=== PATIENT | female | born 2000 | race Caucasian/White ===

== ENCOUNTER 2022-02-25 03:15 | Outpatient (CLI) | payer OTHER, SELFPAY ==
[2022-02-25 11:06] LABS: Kit/Specimen SENT
[2022-02-25 11:14] LABS: Abs Immature Grans 0.03 10^3/uL (0.0-0.06); Absolute Basophil Count 0.05 10^3/uL (0.0-0.2); Absolute Lymphocyte Count 2.44 10^3/uL (1.2-3.4); Absolute Monocyte Count 0.76 10^3/uL (0.1-0.8); Absolute Neutrophil Count 5.75 10^3/uL (1.2-6.7); Basophils % 0.5; Eosinophils % 1.1; HCT 39.8 % (36.0-46.0); HGB 14.1 g/dL (11.2-15.7); Immature Grans % 0.3; Lymphocytes % 26.7; MCH 31.4 pg (27.0-33.0); MCHC 35.4 % (32.0-36.0); MCV 89 fL (80-95); MPV 10.1 fL (8.0-11.0); Monocytes % 8.3; Neutrophils % 63.1; Platelet Count 255 10^3/uL (130-400); RBC 4.49 10^6/uL (3.93-5.22); RDW 12.3 % (11.7-14.6); RDW-SD 39.7 fL; WBC 9.13 10^3/uL (4.4-10.8)
[2022-02-25 11:25] LABS: Glucose,1 Hr (Glucola) 82 mg/dL (80-140)
[2022-02-26 09:28] LABS: Hepatitis B Surface Ag Negative (Negative)
[2022-02-26 10:22] LABS: Hepatitis C Ab w Rflx HCV PCR Negative (Negative)
[2022-02-26 10:38] LABS: HIV-1/2 Ag & Ab Screen Negative (Negative)
[2022-02-26 11:05] LABS: Varicella IgG Antibody Positive (See Note)
[2022-02-26 11:07] LABS: Rubella IgG Ab (UVM) Positive (See Note)
[2022-02-27 13:28] LABS: Syphilis IgG w/Reflex Nonreactive (Nonreactive)
[2022-03-03 15:23] LABS: Result Summary NEGATIVE; Specimen WB Whole Blood
[2022-03-03 16:24] LABS: Specimen WB Whole Blood
== END 2022-02-25 03:16 | disposition home or self-care (01) ==
LOC: LBO 03:16 → LBN 12:41
PROVIDERS: Advanced Practice Midwife; Visit Provider Advanced Practice Midwife
DX: Z34.91 Encounter for supervision of normal pregnancy, unspecified, first trimester (principal); Z36.89 Encounter for other specified antenatal screening; Z3A.12 12 weeks gestation of pregnancy
CPT/HCPCS: 36415; 81329; 82950; 86787; 86803; 86850; 86900; 86901; 87340; 87389; 81220; 84443; 85025; 86762; 86780

== ENCOUNTER 2022-02-25 15:40 | Outpatient (REF) | payer OTHER, SELFPAY ==
[2022-02-25 13:03] LABS: *AMPHETAMINES SCREEN URINE Negative (Negative); *BARBITURATES SCREEN URINE Negative (Negative); *BENZODIAZEPINES SCREEN URINE Negative (Negative); Cannabinoids THC Negative (Negative); Cocaine Screen,Urine Negative (Negative); METHADONE URINE SCREEN Negative (Negative); OPIATES URINE SCREEN Negative (Negative)
[2022-02-25 13:04] LABS: Tricyclic Antidepressants Negative (Negative)
[2022-03-03 14:20] LABS: Buprenorphine Negative ng/mL (Cutoff: 5.0); Norbuprenorphine Negative ng/mL (Cutoff: 2.5)
== END 2022-02-25 15:41 | disposition home or self-care (01) ==
LOC: LBN 15:40
PROVIDERS: Visit Provider Advanced Practice Midwife
DX: Z34.91 Encounter for supervision of normal pregnancy, unspecified, first trimester (principal); Z3A.13 13 weeks gestation of pregnancy
CPT/HCPCS: 80307; 87086

== ENCOUNTER 2022-03-25 15:01 | Outpatient (REF) | payer OTHER, SELFPAY ==
[2022-03-26 15:05] LABS: Chlamydia Result Negative (Negative); GC Result Negative (Negative)
== END 2022-03-25 15:02 | disposition home or self-care (01) ==
LOC: LBN 15:01
PROVIDERS: Visit Provider Advanced Practice Midwife
DX: Z34.92 Encounter for supervision of normal pregnancy, unspecified, second trimester (principal); Z3A.16 16 weeks gestation of pregnancy
CPT/HCPCS: 87491; 87591

== ENCOUNTER 2022-06-17 02:37 | Outpatient (CLI) | payer OTHER, SELFPAY ==
[2022-06-17 12:38] LABS: HCT 37.3 % (36.0-46.0); HGB 12.9 g/dL (11.2-15.7); MCH 32.3 pg (27.0-33.0); MCHC 34.6 % (32.0-36.0); MCV 94 fL (80-95); MPV 10.3 fL (8.0-11.0); Platelet Count 268 10^3/uL (130-400); RBC 3.99 10^6/uL (3.93-5.22); RDW 12.4 % (11.7-14.6); WBC 9.55 10^3/uL (4.4-10.8)
[2022-06-17 12:49] LABS: Glucose,1 Hr (Glucola) 89 mg/dL (80-140)
== END 2022-06-17 02:38 | disposition home or self-care (01) ==
LOC: LBO 02:37
PROVIDERS: Visit Provider Advanced Practice Midwife
DX: O36.0130 Maternal care for anti-D [Rh] antibodies, third trimester, not applicable or unspecified (principal); Z67.91 Unspecified blood type, Rh negative; Z3A.28 28 weeks gestation of pregnancy
CPT/HCPCS: 36415; 82950; 85027; 86850; 90384

== ENCOUNTER 2022-06-30 23:35 | Observation (INO) | payer OTHER, SELFPAY ==
[2022-06-30 23:18] VITALS: BP 115/61; PULSE 96; RESP 16; TEMP 36.9
--- NOTE | 2022-06-30 23:46 | HPE_ITS ---
Date of service: 06/30/22 Time of Service: 23:46 Assessment and Plan Assessment and plan (1) Acute right flank pain: Status: Acute Assessment and plan: R/O kidney stones vs cholecystitis vs appendicitis Abd soft, uterus nontender, right flank pain with neg CVAT Start IVF of LR, keep NPO, Zofran 4 mg q4hrs prn nausea Labs: CBC, CMP, amylase, lipase, UA & C&S (not collected yet) Consult with Dr. Anthony in the ED Is OB stable cleared, will discharge from , Transfer pt to ED for pain management and further evaluation (2) 30 weeks gestation of : Status: Acute Assessment and plan: NST reactive, no labor, cvx closed Obstetrically stable (3) History of nephrolithiasis: OB-HPI Labor/Delivery History of Present Illness Reason for Visit: sudden onset right side pain Chief Complaint: Other (sudden onset right side/flank pain at waist & hip area @ 2145 with vomiting x2, pain level ranging 6-8/10 and constant). ASAF Calculator Estimated Delivery Date Method Current WG Current Estimate 09/03/22 LMP (Certain) 30w 6d Other Estimates 09/04/22 Ultrasound #1 30w 5d Comments: Denies vaginal bleeding, ROM, contractions, appreciates movement. Pt reports history of kidney stones, last episode on left side over 1 yr ago. History of Present Expected Delivery Route/Plan - CNM FOB/ - Mariza Lizarraga (first child) BG Specific Issues/Plan 1. Von Willebrand's disease, mild per pt, no meds, fam hx (mother & mgm), dx'ed @ [facility] 1a. Consult @ [facility] heme/onc, see note, low dose ASA OK'ed, next appt 06/03/22 1b. Cleared for hematology for delivery at [facility], anesthesia consult requested not indicated per [employer] 1c. OB Consult 2. PCN allergy, accepts ref to [facility] allergy for testing: telehealth appt done 04/20/22 2a. Allergy clinic notes indicate no PCN allergy rather pt experienced side=effects only 3. BMI 33, early glucola=82 4. Low dose ASA for nulliparity and elevated BMI 5. FOB congenital hypoplastic left heart, surgery in [place], his aunt too ( in childhood) 5a. Accepts [facility] level 2 scan, genetics & MFM consult 5b. MFM & Peds cardiology 04/15, level 2 & echo nml, genetics consult 04/13/22 6. Desires cfDNA, CF (Negative) & SMA screening (Negative), declines AFP 7. Rh neg; RhoGam @ 28 wks ___ 8. 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) Allergy history, penicillin (Acute) Migraines (Chronic) Asthma (Chronic) Von Willebrand disease (Acute) Medical History (Updated 07/01/22 @ 00:00 by Sangeeta Gaviria) History of nephrolithiasis Family History (Updated 02/06/22 @ 16:10 by Stefanie Mejía) Other Diabetes Social History (Updated 02/06/22 @ 16:11 by Stefanie Mejía) Smoking/Tobacco Use Status: Never Smoking risk assessment performed?: Yes Alcohol Intake: never Drug use: Never Household members: spouse Housing: house Number of Children: 0 Education Level: college 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 Sexually active: Yes Do you think of yourself as: straight/heterosexual Current gender identity: female Female Reproductive History Menstrual Age of Menarche: 10 Duration of menses: 3-5 days control method: none History History 1 Para 0 Hx # Term Pregnancies 0 Multiple births 0 Hx # Pregnancies 0 Ectopic pregnancies 0 AB induced 0 Hx Number of Living Children 0 AB spontaneous 0 Meds Allergies and Home Medications Allergies Allergy/AdvReac Type Severity Reaction Status Date / Time codeine Allergy Hives Verified 06/17/22 11:18 hazelnut Allergy Other (See Verified 06/17/22 11:18 Comment) spiders AdvReac Skin Rash Uncoded 06/17/22 11:18 Home Medications Medication Instructions Recorded Confirmed Type fexofenadine 60 mg-pseudoephedrine 1 tab PO Q12H PRN 02/06/22 06/17/22 History ER 120 mg tablet,ext.release,12 hr (Nikki-D 12 Hour) montelukast 10 mg tablet 10 mg PO DAILY 02/06/22 06/17/22 History (Jorgeir) prenat.vits,jaya,[id number] 1 tab PO DAILY 02/06/22 06/17/22 History aspirin 81 mg tablet,delayed 81 mg PO DAILY #90 tabs 02/25/22 06/17/22 Rx release Exam Physical Exam Vital signs: Temp Pulse Resp BP 98.5 F 96 H 16 115/61 06/30/22 23:18 06/30/22 23:18 06/30/22 23:18 06/30/22 23:18 Vital Signs Reviewed: Yes Constitutional Constitutional: moderate distress, average body habitus and cooperative Comments: vomiting shortly after arrival in unit Detailed Labor and Delivery Exam Dilation: 0 Effacement (%): 0 station: -4 (presenting part out of the pelvis) Consistency: firm Amniotic Membrane Status: Intact Contraction Frequency(min): occasional, irreg, mild Contraction Intensity: Mild Fetus A Heart Rate Baseline: 135 Monitor Accelerations: 10 X 10 Monitor Decelerations: None Variability: Moderate (6-25 BPM) Categories: Category I Assessment Note: Reactive NST HEENT Exam HEENT Exam: Normal Neck Exam Neck Exam: Normal Chest/Brest/Axilla Exam Chest Exam: Normal Breast Exam Breast Exam: Not Done Respiratory Exam Respiratory Exam: Normal Cardiovascular Exam Cardiovascular Exam: Normal Abdominal Exam Abdominal Exam: Abnormal Detailed Abdominal Exam Comments: Gravid abd, uterus soft and nontender. Upper quadrants and lower quadrants nontender to palpation, No rebound noted, tenderness over right flank area increased with deep palpation, and pain radiates toward the RLQ. Rectal Exam Rectal Exam: Normal Exam Exam: Normal Extremities Exam Extremities Exam: Normal Back/Spine/Pelvis Exam Back Exam: Normal (negative for CVAT) Skin Exam Skin Exam: Normal Neurological Exam Neurological Exam: Normal Psychiatric Exam Psychiatric Exam: Normal (appropriate expression of pain and distress) Results Results Blood Type: O- (received RhoGam 28 wks on 06/17/22) Rubella Status: Immune Varicella Immunity: Immune Risk Assessment Risk for Shoulder Dystocia Historical/Initial OB: POSITIVE FOR: Pre- BMI>30; NEGATIVE FOR: Pelvic Abnormality, Previous Shoulder Dystocia or Previous Macrosomia Risk for Pre-Eclampsia Date Initiated/Initials: indicated, discussed w/Dr. Duran. 02/25/22 milady Yes, if one or more: NEGATIVE FOR: Hx Pre-E/Gest HTN, Chronic HTN, Multiple Gestation, Pre-gestational DM, Renal Disease, Systemic Lupus or APA Syndrome Yes, if 2 or more: POSITIVE FOR: Nulliparity and BMI>30; NEGATIVE FOR: Age>= 35 yrs, >10yr btwn pregnancies, ethinicty, Mother/Sister w/ Pre-E or Previous IUGR Risk for Post- Hemorrhage Initial: POSITIVE FOR: Known Clotting Deficiency (VonWillebrand Syndrome); NEGATIVE FOR: Multiple Gestation, Previous PPH, Grand Multiparity or Anticoagulation Interventions: consider discontinuing low dose ASA in third trimester Risks Reviewed Risks Reviewed Upon Admission: Yes
[2022-07-01] MEDS: Ondansetron 4 MG/2 ML VIAL IVP (00:05)
[2022-07-01] MEDS: Lactated Ringers 1,000 ML 200 ML IV (00:06)
[2022-07-01 00:17] LABS: HCT 36.2 % (36.0-46.0); MCH 32.5 pg (27.0-33.0); MCHC 35.9 % (32.0-36.0); MCV 91 fL (80-95); MPV 10.6 fL (8.0-11.0); Platelet Count 224 10^3/uL (130-400); RDW 12.1 % (11.7-14.6); RDW-SD 40.3 fL; WBC 11.36 10^3/uL (4.4-10.8)
[2022-07-01 00:31] LABS: Amylase 73 U/L (25-115); Lipase 145 U/L (73-393)
[2022-07-01 00:34] LABS: ALT 21 U/L (14-59); AST 23 U/L (15-37); Albumin 2.9 g/dL (3.4-5.0); Alkaline Phosphatase 116 U/L (46-116); Anion Gap 10.2 mmol/L (3-11); BUN 10 mg/dL (7-18); Bilirubin, Total 0.2 mg/dL (0.2-1.0); CO2 23.8 mmol/L (21.0-32.0); CREATININE 0.7 mg/dL (0.55-1.02); Calcium 8.8 mg/dL (8.5-10.1); Chloride 105 mmol/L (98-107); Estimated GFR 123.78 (mL/min/1.73m2); Glucose 98 mg/dL (74-106); Potassium 3.7 mmol/L (3.5-5.1); Sodium 139 mmol/L (136-145); Total Protein 6.4 g/dL (6.4-8.2)
--- NOTE | 2022-07-01 00:36 | W.OBNST ---
Date of service: 07/01/22 Time of Service: 00:36 NST Evaluation Reason for NST Reasons for Nonstress Test: OTHER, SEE COMMENT Reason for NST Other: Right flank pain at 30+5 wks Test and Monitor Explained Test/Monitor Explained: Test Explained, Monitor Explained and Patient Verbalized Understanding Vital Signs Blood Pressure: 115/61 Pulse: 16 Temperature: 98.5 F NST Information Time on Monitor: 23:12 Date off Monitor: 07/01/22 Time off Monitor: 00:08 NST Interventions: IV Fluids Contraction Frequency: none noted NST Evaluation Patient States Movement: Present FHR Baseline: 135 Variability: Moderate 6-25 bpm Accelerations: 15x15 Decelerations: None NST Results: Reactive Note NST Note Note: No labor, cvx closed, status reassuring Pt discharged from and transported to ED for pain management and further evaluation NST Reviewed and Verified by: Sangeeta Gaviria
[2022-07-01 00:38] VITALS: BP 115/61; PULSE 16; TEMP 36.9
--- NOTE | 2022-07-01 00:42 | DSE_ITS ---
Date of service: 07/01/22 Time of Service: 00:42 DS: Diagnosis Discharge Diagnosis (1) Acute right flank pain: Status: Acute (2) 30 weeks gestation of : Status: Acute (3) History of nephrolithiasis: Discharge Plan Disposition Patient Disposition: Other Disposition Not Listed Other Facility: Discharged from to Emergency Dept Condition: Fair Discharge Details Reason For Visit: sudden onset right side pain Admit Provider: Sangeeta Gaviria Attending Provider: Sangeeta Gaviria Hospital Course Hospital Course: Evaluated in the Center for right sided pain, OB eval=no labor, reactive NST, cvx closed, pt with moderate to severe right flank pain and vomiting. IV started, labs drawn, medication given, Dr. Anthony accepts transfer, pt then transported by w/c to ED, IV infusing, pain reported by pt at 5/10 while sitting. Home Meds and New Rx's Prescriptions: No Action montelukast [Singulair] 10 mg tablet 10 mg PO DAILY fexofenadine-pseudoephedrine [Nikki-D 12 Hour] 60-120 mg tablet extended release 12 hr 1 tab PO Q12H PRN prenat.vits,jaya,[id number] Tablet 1 tab PO DAILY aspirin 81 mg tablet,delayed release (DR/EC) 81 mg PO DAILY Qty: 90 2RF Rx Instructions: take one tab daily alternating with 2 tabs every other day Discharge Instructions Activity:: Activity as Tolerated Equipment/Supplies:: No Equipment Needed Diet:: NPO to ED Discharge Orders Discharge Orders: Discharge Order (Routine); Ordered 07/01/22 Ordered By: Sangeeta Gaviria OB:DS Summary Contraception Discussed Contraception Discussed: No, Status at Discharge Functional status at discharge: independent ambulation Overall status at discharge: patient is not back to baseline Mental Status: mental status grossly normal Speech and Movement: speech and movement normal and speech clear Mood: congruent mood Affect: normal affect Exam Physical Exam Vital signs: Temp Pulse Resp BP 98.5 F 96 H 16 115/61 06/30/22 23:18 06/30/22 23:18 06/30/22 23:18 06/30/22 23:18 Constitutional Constitutional: moderate distress, average body habitus and cooperative HEENT Exam HEENT Exam: Normal Neck Exam Neck Exam: Normal Respiratory Exam Respiratory Exam: Normal Cardiovascular Exam Cardiovascular Exam: Normal Rectal Exam Rectal Exam: Normal Back/Spine/Pelvis Exam Back Exam: Normal (negative for CVAT) Skin Exam Skin Exam: Normal Neurological Exam Neurological Exam: Normal Psychiatric Exam Psychiatric Exam: Normal (appropriate expression of pain and distress) PFSH All Active Problems (Updated 07/01/22 @ 00:42 by Sangeeta Gaviria) 30 weeks gestation of (Acute) Acute right flank pain (Acute) Rh negative state in antepartum period (Acute) (Acute) Allergy history, penicillin (Acute) Migraines (Chronic) Asthma (Chronic) Von Willebrand disease (Acute) Medical History (Updated 07/01/22 @ 00:42 by Sangeeta Gaviria) Family history of cardiac disorder in father Pt's born with hypoplastic left heart History of nephrolithiasis Family History (Updated 02/06/22 @ 16:10 by Stefanie Mejía) Other Diabetes Social History (Updated 02/06/22 @ 16:11 by Stefanie Mejía) Smoking/Tobacco Use Status: Never Smoking risk assessment performed?: Yes Alcohol Intake: never Drug use: Never Household members: spouse Housing: house Number of Children: 0 Education Level: college 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 Sexually active: Yes Do you think of yourself as: straight/heterosexual Current gender identity: female Female Reproductive History Menstrual Age of Menarche: 10 Duration of menses: 3-5 days control method: none History History 1 Para 0 Hx # Term Pregnancies 0 Multiple births 0 Hx # Pregnancies 0 Ectopic pregnancies 0 AB induced 0 Hx Number of Living Children 0 AB spontaneous 0 DS: Data Vitals/I&O Vitals and I&O: Vital Signs Temperature 98.5 F 06/30/22 23:18 Temperature Source Oral 06/30/22 23:18 Pulse 96 H 06/30/22 23:18 Respiratory Rate 16 06/30/22 23:18 Blood Pressure 115/61 06/30/22 23:18 Oxygen Delivery Method Room Air 06/30/22 23:18 Oxygen Flow Rate 0 06/30/22 23:18 Pain Level 8 07/01/22 00:19 Data Completed and Pending Labs on day of discharge: Labs from last 24 hours 07/01/22 07/01/22 07/01/22 00:05 00:05 00:05 WBC 11.36 H RBC 4.00 Hgb 13.0 Hct 36.2 MCV 91 MCH 32.5 MCHC 35.9 RDW 12.1 Plt Count 224 MPV 10.6 Sodium 139 Potassium 3.7 Chloride 105 Carbon Dioxide 23.8 Anion Gap 10.2 BUN 10 Creatinine 0.7 Est GFR (CKD-EPI 2020) 123.78 Glucose 98 Calcium 8.8 Total Bilirubin 0.2 AST 23 ALT 21 Alkaline Phosphatase 116 Total Protein 6.4 Albumin 2.9 L Amylase 73 Lipase 145
== END 2022-07-01 00:30 | disposition other institution (70) ==
LOC: OBS 07-01 01:03
PROVIDERS: Admitting Provider Advanced Practice Midwife; Visit Provider Advanced Practice Midwife
DX: O26.893 Other specified pregnancy related conditions, third trimester (principal); R10.31 Right lower quadrant pain; O99.113 Other diseases of the blood and blood-forming organs and certain disorders involving the immune mechanism complicating pregnancy, third trimester; D68.00 Von Willebrand disease, unspecified; O99.513 Diseases of the respiratory system complicating pregnancy, third trimester; O99.353 Diseases of the nervous system complicating pregnancy, third trimester; O36.0930 Maternal care for other rhesus isoimmunization, third trimester, not applicable or unspecified; Z3A.30 30 weeks gestation of pregnancy; J45.909 Unspecified asthma, uncomplicated; G43.909 Migraine, unspecified, not intractable, without status migrainosus; Z87.442 Personal history of urinary calculi
CPT/HCPCS: 80053; 83690; 85027; 59025; 82150; G0378; J2405

== ENCOUNTER 2022-07-01 00:38 | Emergency (ER) | payer OTHER, SELFPAY ==
[2022-07-01 00:39] VITALS: BP 116/71; PULSE 70; RESP 16; TEMP 36.6; O2SAT 96
--- NOTE | 2022-07-01 01:33 | W.ED.GENAD ---
Discharge Plan Discharge Details Chief Complaint: Abd Prob Primary Care Provider: Unknown,Unknown ED Provider: Mono Anthony Home Meds and New Rx's Prescriptions: No Action montelukast [Singulair] 10 mg tablet 10 mg PO DAILY fexofenadine-pseudoephedrine [Nikki-D 12 Hour] 60-120 mg tablet extended release 12 hr 1 tab PO Q12H PRN prenat.vits,jaya,[id number] Tablet 1 tab PO DAILY aspirin 81 mg tablet,delayed release (DR/EC) 81 mg PO DAILY Qty: 90 2RF Rx Instructions: take one tab daily alternating with 2 tabs every other day Medical Decision Making This is a 31-week female who is Rh-, with von Willebrand disease, who presents today for abdominal pain. Patient states that at around 9:30 PM she got up out of her seat and when she moves she noticed pain in her right hip/flank area. Pain has been constant since then but comes and goes in severity. It appears to be worse when she lies down, slightly improved with movement and sitting. Pain continued throughout the night, she came in was evaluated by her OB upholsterer assembly line, she had 3 episodes of vomiting between the initial onset and then. OB evaluation demonstrated no significant obstetric emergency, and the patient was brought to the emergency department for further evaluation. Currently the patient states that the pain is somewhat improved but still an achy sensation in the right flank and right hip. Patient does have history of kidney stones but states that this feels different. She denies any vaginal bleeding. She denies any persistent diarrhea or continued vomiting. Pain is described as achy in nature. No other complaints at this time. No other modifying factors. Exam demonstrates well-appearing female, mild achiness over the right hip and right mid and lower abdominal region. No right upper quadrant tenderness. No CVA tenderness. Symptoms appear slightly low to suggest acute appendicitis, clinical history appears inconsistent with ovarian torsion but ovarian etiology is on the differential. Potential for musculoskeletal component as well. Initial work-up done by OB demonstrates normal labs including CBC and comprehensive metabolic panel. Patient has not yet urinated. We will continue to rehydrate, and monitor. We did discuss imaging options including CT scan, and through shared decision-making process patient would like to hold off on radiographic imaging. I do feel that ultrasound is certainly reasonable for further ovarian and abdominal evaluation. We will plan for ultrasound in 6 hours in the morning when ultrasonography gets here, however currently there is no clinical evidence of an acute surgical abdomen necessitating emergent CT scan or emergent transfer for ultrasonography. 2:58 AM Urinalysis has returned, negative for infection however there is 20-50 RBCs, which certainly does increase my differential concern for urolithiasis. Patient's pain has returned, we did offer morphine and patient would prefer this. She has had morphine before although she does have an allergy to codeine. She has tolerated morphine without a history of rash. We will continue to monitor here in the ED until ultrasound in the morning. Sign Out Yes HPI General Date/Time Provider Initiated Documentation: 07/01/22 00:53. HPI Narrative: This is a 31-week female who is Rh-, with von Willebrand disease, who presents today for abdominal pain. Patient states that at around 9:30 PM she got up out of her seat and when she moves she noticed pain in her right hip/flank area. Pain has been constant since then but comes and goes in severity. It appears to be worse when she lies down, slightly improved with movement and sitting. Pain continued throughout the night, she came in was evaluated by her OB upholsterer assembly line, she had 3 episodes of vomiting between the initial onset and then. OB evaluation demonstrated no significant obstetric emergency, and the patient was brought to the emergency department for further evaluation. Currently the patient states that the pain is somewhat improved but still an achy sensation in the right flank and right hip. Patient does have history of kidney stones but states that this feels different. She denies any vaginal bleeding. She denies any persistent diarrhea or continued vomiting. Pain is described as achy in nature. No other complaints at this time. No other modifying factors. Related Data Home Medications Medication Instructions Recorded Confirmed fexofenadine 60 mg-pseudoephedrine 1 tab PO Q12H PRN 02/06/22 07/01/22 ER 120 mg tablet,ext.release,12 hr (Nikki-D 12 Hour) montelukast 10 mg tablet 10 mg PO DAILY 02/06/22 07/01/22 (Singulair) prenat.vits,jaya,[id number] 1 tab PO DAILY 02/06/22 07/01/22 aspirin 81 mg tablet,delayed 81 mg PO DAILY #90 tabs 02/25/22 07/01/22 release Previous Rx's Medication Instructions Recorded aspirin 81 mg tablet,delayed 81 mg PO DAILY #90 tabs 02/25/22 release Allergies Allergy/AdvReac Type Severity Reaction Status Date / Time codeine Allergy Hives Verified 07/01/22 00:43 hazelnut Allergy Other (See Verified 07/01/22 00:43 Comment) spiders AdvReac Skin Rash Uncoded 07/01/22 00:43 General Stated Complaint: Abd Prob MARII: 3 Review of Systems All systems reviewed & are unremarkable except as noted in HPI and below PFSH All Active Problems 30 weeks gestation of (Acute) Acute right flank pain (Acute) Rh negative state in antepartum period (Acute) (Acute) Allergy history, penicillin (Acute) Migraines (Chronic) Asthma (Chronic) Von Willebrand disease (Acute) Medical History Family history of cardiac disorder in father Pt's born with hypoplastic left heart History of nephrolithiasis Family History Other Diabetes Social History Smoking/Tobacco Use Status: Never Smoking risk assessment performed?: Yes Alcohol Intake: never Drug use: Never Household members: spouse Housing: house Number of Children: 0 Education Level: college 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 3.ENT: Atraumatic external nose and ears. Moist MM. Neck: Symmetric, trachea midline, No thyromegaly. 4.CVS: +S1/S2, No murmurs or gallops. Peripheral pulses 2+ and equal in all extremities. Brisk capillary refill in all extremities. 5.RESP: Unlabored respiratory effort. Clear to auscultation bilaterally. No wheezes rales or rhonchi 6.GI: Soft, nondistended, no guarding or rebound. Mild achiness over the right lower quadrant and right hip area, but no pain with movement of the hip. No CVA tenderness bilaterally. Negative Toure sign. Minimal achiness in the mid right abdomen. Appropriately gravid abdomen. 7.MSK: Normocephalic/Atraumatic, Extremities w/o deformity or ttp No cyanosis or clubbing, Normal movement of all extremities 8.Skin: Warm, Dry. No rashes or lesions. 9.Neuro: instructional coordinator II-XII grossly intact. Sensation grossly intact, no focal neurologic deficits. 10.Psych: (AAO) x3. Appropriate mood and affect Course Vital Signs Vital signs: Vital Signs Temperature 36.6 C 07/01/22 00:39 Pulse 70 07/01/22 00:39 Respiratory Rate 16 07/01/22 00:39 Blood Pressure 116/71 07/01/22 00:39 Pulse Oximetry 96 07/01/22 00:39 Temperature 36.6 C 07/01/22 00:39 Temperature Source Temporal Artery Scan 07/01/22 00:39 Pulse 70 07/01/22 00:39 Respiratory Rate 16 07/01/22 00:39 Respiratory Effort 07/01/22 00:39 Blood Pressure 116/71 07/01/22 00:39 Blood Pressure Position Supine 07/01/22 00:39 Pulse Oximetry 96 07/01/22 00:39 Oxygen Delivery Method Room Air 07/01/22 00:39 Oxygen Flow Rate 0 07/01/22 00:39 Pain Level 5 07/01/22 00:39
[2022-07-01] MEDS: ACETAMINOPHEN 1,000 MG/100 ML BTL 400 MG IVPB (01:35)
[2022-07-01 01:36] LABS: Bilirubin Negative (Negative); Blood Large (Negative); Clarity Sl Cloudy (Clear); Glucose Negative (Negative); Ketones 15 mg/dL (Negative); Leukocyte Esterase Trace (Negative); Nitrite Negative (Negative); Urobilinogen 0.2 EU/dL (Up TO 0.2)
--- NOTE | 2022-07-01 01:38 | DI.US_ITS ---
Exam(s) US PELVIS RENAL EXAM: US PELVIS RENAL CLINICAL HISTORY: eval right ovaries, appe. hx of right mid abd pain TECHNIQUE: Ultrasound performed using standard protocol. COMPARISON: No exams were available for comparison FINDINGS: Abdominal ultrasound was performed according to the usual protocol. Visualization of appendix is unc ertain. No gross evidence of abscess in the right lower quadrant. No hydronephrosis. Incidental no nobstructing small left renal stone noted at the lower pole. Visualized portions of liver are unrema rkable. Ovaries were nonvisualized. Left ureteral jet was visualized. Right ureteral jet was nonvi sualized. The patient reportedly has a 31 week gestation. IMPRESSION: No evidence of urinary tract obstruction. Left nephrolithiasis is noted. DATA REPOSITORY:
[2022-07-01 01:44] LABS: Bacteria Few HPF (Negative); C & S Indicated? Yes; Crystals Few Amorphous HPF (Negative); Epithelial Cells Few HPF (Negative); Mucus Negative (Negative); RBC 20-50 HPF (0-2)
[2022-07-01] MEDS: Ondansetron 4 MG/2 ML VIAL IVP (03:05)
[2022-07-01] MEDS: MORPHine 4 MG/ML SYR IVP (03:10)
--- NOTE | 2022-07-01 06:26 | NUR.NOTE ---
pt came to ER with bag of saline running. received the 1000ccNursing Note:
[2022-07-01 07:00] VITALS: BP 92/48; PULSE 69; RESP 18; TEMP 36.9; O2SAT 97
--- NOTE | 2022-07-01 07:01 | NUR.NOTE ---
Nursing Note: PT RESTING ON STRETCHER WITH LIGHTS OFF, DENIES CURRENT COMPLAINTS OR NEEDS, VSS, CONTINUE TO MONITOR.
[2022-07-01 08:27] VITALS: BP 88/56; PULSE 71; TEMP 36.6; O2SAT 97
--- NOTE | 2022-07-01 08:33 | ED.PROG_ITS ---
Date of service: 07/01/22 Time of Service: 08:33 Medical Decision Making 833 --care was signed out by Dr. Anthony, please see his documentation regarding initial ED presentation and course. Plan at signout was to follow-up on ultrasound of the abdomen pelvis. Ultrasound pending at time of signout. Nursing noted that blood pressure low with systolic in the 80s. I will give LR 1 L IV bolus. -- Ultrasound was interpreted by radiology: Abdominal ultrasound was performed according to the usual protocol.? Visualization of appendix is uncertain.? No gross evidence of abscess in the right lower quadrant.? No hydronephrosis.? Incidental nonobstructing small left renal stone noted at the lower pole.? Visualized portions of liver are unremarkable.? Ovaries were nonvisualized.? Left ureteral jet was visualized.? Right ureteral jet was nonvisualized. The patient reportedly has a 31 week gestation. No evidence of urinary tract obstruction.? Left nephrolithiasis is noted. Plan to proceed with MR. 1230 --MRI of the abdomen interpreted by radiology: No specific evidence of appendicitis although the appendix is not clearly visualized.? There appears to be mild right hydronephrosis. 1240 -- Patient reassessed and remained stable. I called and spoke with on-call solidworks designer, Dr. Duran, discussed ED presentation and course, she recommends close outpatient follow-up and initiating treatment with Macrobid for possible urinary tract infection. Sign Out No Sign Out Sign Out Data: Sign Out Comment: 31 weeks , right-sided abdominal pain, follow-up on ultrasound, potential for MRI if ultrasound equivocal Last updated by Mono Anthony DO at 07/01/22 07:47 Discharge Plan Disposition Patient Disposition: Home Condition: Stable Discharge Details Clinical Impression: Abdominal pain in , Kidney stone, UTI (urinary tract infection) Primary Care Provider: Unknown,Unknown ED Provider: Lon Poon Home Meds and New Rx's Prescriptions: Continued montelukast [Singulair] 10 mg tablet 10 mg PO DAILY fexofenadine-pseudoephedrine [Nikki-D 12 Hour] 60-120 mg tablet extended release 12 hr 1 tab PO Q12H PRN prenat.vits,jaya,[id number] Tablet 1 tab PO DAILY aspirin 81 mg tablet,delayed release (DR/EC) 81 mg PO DAILY Qty: 90 2RF Rx Instructions: take one tab daily alternating with 2 tabs every other day No Action phenazopyridine [Pyridium] 200 mg tablet 200 mg PO TID 7 Days Qty: 21 1RF hydromorphone [Dilaudid] 2 mg tablet 1 mg PO Q6H MDD 4 tablets PRN (Reason: pain) Qty: 20 0RF phenazopyridine [Pyridium] 200 mg tablet 200 mg PO TID Qty: 20 1RF Discharge Instructions Instructions: Kidney Stones (ED), Urinary Tract Infection in Women (ED) Additional Instructions: Please take full course of antibiotic as prescribed. Your initial dose was given here in the emergency department. Your next dose should be this evening. Please follow-up with your solidworks designer. Call today to arrange timely follow-up for tomorrow. Return to the ER immediately for any worsening or new concerning symptoms. Referrals: [facility] [Provider Group] Discharge Data Discharge Date/Time-TO BE ENTERED AT DEPARTURE: 07/01/22 13:03
--- NOTE | 2022-07-01 10:15 | DI.MRI_ITS ---
Exam(s) MR ABDOMEN WO EXAM: MR ABDOMEN WO CLINICAL HISTORY: rt sided abdominal pain, hematuria. TECHNIQUE: Multiplanar multisequence MRI was performed. COMPARISON: No exams were available for comparison FINDINGS: MR examination of the abdomen and pelvis was performed without contrast administration. There is reportedly a 31 week gestation. Fetus is in cephalic presentation. No focal abnormality of uterus. No evidence of ascites. Liver, spleen, pancreas, gallbladder, and bile ducts are unremarkable. Adrenals appear normal bilate rally. There may be mild right renal hydronephrosis. Left kidney is unremarkable. Appendix is not specifically visualized but there is no evidence of appendicitis or other inflammator y process in the right lower quadrant. No specific abnormality seen involving the urinary bladder. IMPRESSION: No specific evidence of appendicitis although the appendix is not clearly visualized. There appears to be mild right hydronephrosis. DATA REPOSITORY:
[2022-07-01 12:34] VITALS: BP 96/43; PULSE 70; RESP 16; TEMP 36.8; O2SAT 100
[2022-07-01 12:43] VITALS: BP 96/43; PULSE 70; RESP 16; TEMP 36.8; O2SAT 100
[2022-07-01] MEDS: MacroBID 100 MG CAP PO (12:53)
== END 2022-07-01 13:03 | disposition home or self-care (01) ==
PROVIDERS: Student in an Organized Health Care Education/Training Program; Emergency Provider Student in an Organized Health Care Education/Training Program
DX: O23.43 Unspecified infection of urinary tract in pregnancy, third trimester (principal); N39.0 Urinary tract infection, site not specified; O99.891 Other specified diseases and conditions complicating pregnancy; N20.0 Calculus of kidney; Z3A.31 31 weeks gestation of pregnancy
CPT/HCPCS: 96365; 96366; 96375; 99284; 74181; 76770; 76856; 81003; 81015; 87086; J0131; J2270; J2405

== ENCOUNTER 2022-08-05 10:18 | Outpatient (REF) | payer OTHER, SELFPAY ==
[2022-08-05 10:45] LABS: *AMPHETAMINES SCREEN URINE Negative (Negative); *BARBITURATES SCREEN URINE Negative (Negative); *BENZODIAZEPINES SCREEN URINE Negative (Negative); Cannabinoids THC Negative (Negative); Cocaine Screen,Urine Negative (Negative); METHADONE URINE SCREEN Negative (Negative); OPIATES URINE SCREEN Negative (Negative)
[2022-08-05 10:48] LABS: Tricyclic Antidepressants Negative (Negative)
[2022-08-11 15:42] LABS: Buprenorphine Negative ng/mL (Cutoff: 5.0); Norbuprenorphine Negative ng/mL (Cutoff: 2.5)
== END 2022-08-05 10:19 | disposition home or self-care (01) ==
LOC: LBN 10:18
PROVIDERS: Visit Provider Advanced Practice Midwife
DX: Z34.93 Encounter for supervision of normal pregnancy, unspecified, third trimester (principal)
CPT/HCPCS: 80307; 80348; 87081

== ENCOUNTER 2022-09-04 15:17 | Outpatient (CLI) | payer OTHER, SELFPAY ==
[2022-09-04 16:32] VITALS: BP 115/79; PULSE 90
[2022-09-04 16:48] VITALS: BP 115/79; PULSE 90; TEMP 36.9
--- NOTE | 2022-09-04 16:53 | W.OBNST ---
Date of service: 09/04/22 Time of Service: 16:30 NST Evaluation Reason for NST Reasons for Nonstress Test: OTHER, SEE COMMENT Reason for NST Other: Back Pain Gestational Age Gestational Age in Weeks and Days: 40 Weeks and 1Days Test and Monitor Explained Test/Monitor Explained: Test Explained, Monitor Explained and Patient Verbalized Understanding Vital Signs Blood Pressure: 115/79 Pulse: 90 Temperature: 98.4 F NST Information Date on Monitor: 09/04/22 Time on Monitor: 15:59 Date off Monitor: 09/04/22 Time off Monitor: 16:33 Total Time on Monitor: 34 NST Interventions: None Contraction Frequency: Irregular NST Evaluation Patient States Movement: Present FHR Baseline: 130 Variability: Moderate 6-25 bpm Accelerations: 15x15 Decelerations: None NST Results: Reactive Note N/A NST Note Note: NST is reactive and reassuring. No VE changes from last exam. NST Reviewed and Verified by: Kathryn Lopez
[2022-09-04 16:54] VITALS: BP 115/79; PULSE 90; TEMP 36.9
[2022-09-05 04:47] VITALS: BP 116/73; PULSE 89
== END 2022-09-04 16:45 ==
LOC: BCD 15:19 → OBS 15:23
PROVIDERS: Visit Provider Advanced Practice Midwife
DX: O26.893 Other specified pregnancy related conditions, third trimester (principal); Z3A.40 40 weeks gestation of pregnancy
CPT/HCPCS: 59025

== ENCOUNTER 2022-09-05 05:17 | Inpatient (IN) | payer OTHER, SELFPAY ==
[2022-09-05] VITALS (24 sets, daily range): BP systolic 102–148; BP diastolic 54–79; PULSE 66–148; RESP 16; TEMP 36.5–37; O2SAT 95–99
[2022-09-05 05:08] LABS: ROM Plus Positive
--- NOTE | 2022-09-05 05:18 | HPE_ITS ---
Date of service: 09/05/22 Time of Service: 05:18 Assessment and Plan Assessment and plan (1) Full-term premature rupture of membranes (PROM) with unknown onset of labor: Status: Acute Assessment and plan: 1. Admit and do CBC, type and screen, COVID test. 2. Will place saline lock as it is likely patient will need augmentation 3. ROM + done and is positive 4. Will allow 6 hours from ROM to reassess need for augmentation 5. POCUS exam confirmed cephalic presentation ROP (done with NST) 6. Risks and benefits of augmentation of labor reviewed, discussed briefly ROP presentation and measures we can use to encourage baby to turn to anterior presentation. KH OB-HPI Labor/Delivery History of Present Illness Reason for Visit: PROM at term Chief Complaint: Uterine Contractions; Suspected Rupture of Membranes , Associated Signs and Symptoms of Suspected ROM: gush of clear fluid at 0130 with minimal discharge since then. ASAF Calculator Estimated Delivery Date Method Current WG Current Estimate 09/03/22 LMP (Certain) 40w 2d Other Estimates 09/04/22 Ultrasound #1 40w 1d Comments: Arlin presents with her Mother and her for assessment of vaginal discharge that occured at 0130 that was a gush of clear fluid.She reports minimal discharge since then. She has been having contractions but they are not intense and she is comfortable on arrival. ROM + was positive. Bedside POCUS exam indicates cephalic presentation ROP position. Subjectively on US there are large pockets of amniotic fluid visualized. Arlin is happy to be having her baby and understands that it is likely that some form of augmentation might need to happen. She would like to wait 6 hours and if not in active labor she agrees to reassessment. LULY History of Present Expected Delivery Route/Plan - CNM FOB/ - Mariza Lizarraga (first child) BG [place]son GBS negative Specific Issues/Plan 1. Von Willebrand's disease, mild per pt, no meds, fam hx (mother & mgm), dx'ed @ [facility] [place] 1a. Consult @ [facility] [place] heme/onc, see note, low dose ASA OK'ed, next appt 06/03/22 1b. Cleared for hematology for delivery at [facility], anesthesia consult requested not indicated per BB [employer] 1c. OB Consult- discussed at provider meeting and recommendations per hematology. 1d. Next [facility] [place] Heme appt is 07/29/22, will have labs drawn, all nml 2. PCN allergy, accepts ref to [facility] [place] allergy for testing: telehealth appt done 04/20/22 2a. Telehealth with Allergy clinic notes indicate no history of PCN allergy rather pt experienced side effects only 3. BMI 33, early glucola=82 4. Low dose ASA for nulliparity and elevated BMI 5. FOB congenital hypoplastic left heart, surgery in [place], his aunt too ( in childhood) 5a. Accepts [facility] [place] level 2 scan, genetics & MFM consult 5b. MFM & Peds cardiology 04/15, level 2 & echo nml, genetics consult 04/13/22 6. Desires cfDNA, CF (Negative) & SMA screening (Negative), declines AFP 7. Rh neg; RhoGam @ 28 wks - received 06/17/22 8. Asthma - takes singulair daily 9. History of kidney stones. unobstructing left Kidney stone seen 07/01/22 by US and MRI, also mild right hydronephrosis. 9a. Stopped pyridium at 32 weeks. Assessment: History Reviewed & Current Informed Consent Informed Consent: Augmentation of Labor and Risk,Benefits,Alternatives Discussed Review of Systems All systems reviewed & are unremarkable except as noted in HPI and below Genitourinary Genitourinary: Reports as per HPI PFSH All Active Problems (Updated 09/05/22 @ 05:56 by Kathryn Lopez CNM) Full-term premature rupture of membranes (PROM) with unknown onset of labor (Acute) 30 weeks gestation of (Acute) Acute right flank pain (Acute) Rh negative state in antepartum period (Acute) (Acute) Allergy history, penicillin (Acute) Migraines (Chronic) Asthma (Chronic) Von Willebrand disease (Acute) Medical History Family history of cardiac disorder in father Pt's born with hypoplastic left heart History of nephrolithiasis Family History Other Diabetes Social History Smoking/Tobacco Use Status: Never Smoking risk assessment performed?: Yes Alcohol Intake: never Drug use: Never Household members: spouse Housing: house Number of Children: 0 Education Level: college 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 Sexually active: Yes Do you think of yourself as: straight/heterosexual Current gender identity: female Female Reproductive History Menstrual Age of Menarche: 10 Duration of menses: 3-5 days control method: none History History 1 Para 0 Hx # Term Pregnancies 0 Multiple births 0 Hx # Pregnancies 0 Ectopic pregnancies 0 AB induced 0 Hx Number of Living Children 0 AB spontaneous 0 Meds Allergies and Home Medications Allergies Allergy/AdvReac Type Severity Reaction Status Date / Time codeine Allergy Hives Verified 09/05/22 05:46 hazelnut Allergy Other (See Verified 09/05/22 05:46 Comment) spiders AdvReac Skin Rash Uncoded 09/05/22 05:46 Home Medications Medication Instructions Recorded Confirmed Type fexofenadine 60 mg-pseudoephedrine 1 tab PO Q12H PRN 02/06/22 09/05/22 History ER 120 mg tablet,ext.release,12 hr (Nikki-D 12 Hour) montelukast 10 mg tablet 10 mg PO DAILY 02/06/22 09/05/22 History (Singulair) prenat.vits,jaya,fhp-puln-ubigd 1 tab PO DAILY 02/06/22 09/05/22 History hydromorphone 2 mg tablet 1 mg PO Q6H PRN pain #20 tabs 07/02/22 09/05/22 Rx (Dilaudid) phenazopyridine 200 mg tablet 200 mg PO TID PRN 08/05/22 09/05/22 History (Pyridium) Exam Physical Exam Vital signs: 116/83, P 89, T 98 Vital Signs Reviewed: Yes Constitutional Constitutional: no acute distress Detailed Labor and Delivery Exam Black Score: Cervical Points Exam 0 1 2 3 Dilation Closed 1-2cm 3-4 cm 5-6cm Effacement 0-30% 40-50% 60-70% 80% Consistency Firm Medium Soft Station -3 -2 -1,0 +1,+2 Position Posterior Mid Anterior BLACK Score(Cervical Ripeness Score): 3 Amniotic Membrane Status: Ruptured Rupture Method: Spontaneous Contraction Frequency(min): 3-5 Contraction Duration(sec): 40-60 Contraction Intensity: Mild Comments: Black score is based on VE done afternoon of 09/04/22, fingertip, 50%, VTX -3, cervix medium consistency and mid position. VE not done on admission due to remote from delivery and ROM. KH Fetus A Heart Rate Baseline: 120 Monitor Accelerations: 15 X 15 Monitor Decelerations: None Variability: Moderate (6-25 BPM) Presentation: Cephalic Categories: Category I Est. Weight: 8 lb Date of Membrane Rupture: 09/05/22 Time of Membrane Rupture: 01:30 HEENT Exam HEENT Exam: Normal Neck Exam Neck Exam: Normal (visual exam) Chest/Brest/Axilla Exam Chest Exam: Not Done Breast Exam Breast Exam: Not Done Respiratory Exam Respiratory Exam: Normal Cardiovascular Exam Cardiovascular Exam: Normal Abdominal Exam Abdominal Exam: Normal (gravid uterus, size equals dates) Rectal Exam Rectal Exam: Not Done Exam Exam: Normal (visual external exam, VE not done today due to ROM) Extremities Exam Extremities Exam: Normal Back/Spine/Pelvis Exam Back Exam: Normal Pelvis Adequate: Yes Skin Exam Skin Exam: Normal Neurological Exam Neurological Exam: Normal Psychiatric Exam Psychiatric Exam: Normal Results Results Group Beta Strep: Negative Blood Type: O- Rubella Status: Immune Varicella Immunity: Immune Lab Results: CF neg, SMA neg, cfDNA Low Risk female, Hep B&C neg, Syphilis neg, HIV neg, 1 hr in early 82 and at 28 weeks 89. LULY Risk Assessment Risk for Shoulder Dystocia Historical/Initial OB: POSITIVE FOR: Pre- BMI>30; NEGATIVE FOR: Pelvic Abnormality, Previous Shoulder Dystocia or Previous Macrosomia 40 Weeks: NEGATIVE FOR: EFW> 4500 gms, Maternal Weight Gain >40lb or Post Dates Delivery Plan @ 36wks: spont labor, Delivery Plan @ 40 wks: NVD LULY Risk for Pre-Eclampsia Date Initiated/Initials: indicated, discussed w/Dr. Duran. 02/25/22 milady Yes, if one or more: NEGATIVE FOR: Hx Pre-E/Gest HTN, Chronic HTN, Multiple Gestation, Pre-gestational DM, Renal Disease, Systemic Lupus or APA Syndrome Yes, if 2 or more: POSITIVE FOR: Nulliparity and BMI>30; NEGATIVE FOR: Age>= 35 yrs, >10yr btwn pregnancies, ethinicty, Mother/Sister w/ Pre-E or Previous IUGR Risk for Post- Hemorrhage Initial: POSITIVE FOR: Known Clotting Deficiency (VonWillebrand Syndrome); NEGATIVE FOR: Multiple Gestation, Previous PPH, Grand Multiparity or Anticoagulation At Risk?: No Interventions: consider discontinuing low dose ASA in third trimester Counseled re: Active Management: Yes Date/Initials: 09/05/22 KH Risks Reviewed Risks Reviewed Upon Admission: Yes
--- NOTE | 2022-09-05 06:04 | W.OBNST ---
Date of service: 09/05/22 Time of Service: 05:05 NST Evaluation Reason for NST Reasons for Nonstress Test: OTHER, SEE COMMENT Reason for NST Other: R/O labor Gestational Age Gestational Age in Weeks and Days: 40 Weeks and 2Days Test and Monitor Explained Test/Monitor Explained: Test Explained, Monitor Explained and Patient Verbalized Understanding Vital Signs Blood Pressure: 116/73 Pulse: 89 Temperature: 98.6 F NST Information Date on Monitor: 09/05/22 Time on Monitor: 04:45 Date off Monitor: 09/05/22 Time off Monitor: 05:20 Total Time on Monitor: 35 NST Interventions: None Contraction Frequency: Q 4 NST Evaluation Patient States Movement: Present FHR Baseline: 125 Variability: Moderate 6-25 bpm Accelerations: 15x15 Decelerations: None NST Results: Reactive Note Presentation (cephalic presentation, ROP position) Coding for Presentation w/NST: Completed Exam NST Note Note: NST is reactive and reassuring. POCUS exam done and confirmed cephalic presentation. ROM plus is positive. Patient admitted. NST Reviewed and Verified by: Kathryn Lopez
[2022-09-05 06:07] LABS: Source Nasal/Nares
[2022-09-05 06:08] LABS: HCT 41.5 % (36.0-46.0); HGB 14.4 g/dL (11.2-15.7); MCH 31.4 pg (27.0-33.0); MCHC 34.7 % (32.0-36.0); MCV 90 fL (80-95); MPV 11.1 fL (8.0-11.0); Platelet Count 253 10^3/uL (130-400); RBC 4.59 10^6/uL (3.93-5.22); RDW 12.7 % (11.7-14.6); RDW-SD 41.2 fL; WBC 9.94 10^3/uL (4.4-10.8)
[2022-09-05 06:38] LABS: COVID-19 PCR Negative (Negative)
--- NOTE | 2022-09-05 08:11 | W.PM.OBNL1 ---
Date of service: 09/05/22 Time of Service: 08:11 Informed Consent Informed Consent: Augmentation of Labor and Risk,Benefits,Alternatives Discussed Pelvic Exam Dilation: 3.5 Effacement (%): 80 station: -2 Position: ROT Cervix Position: mid Consistency: soft BISHOPS Score(Cervical Ripeness Score): 9 Contractions Monitor Mode: External Contraction Frequency(min): 2-4 Contraction Duration(sec): 40-80 Intensity: Mild/Moderate Fetus A Monitor: External (US) Heart Rate Baseline: 120 Presentation: Cephalic Variability: Moderate (6-25 BPM) Categories: Category I Accelerations: 15 X 15 Assessment and Plan Assessment and plan (1) Full-term premature rupture of membranes (PROM) with unknown onset of labor: Status: Acute Assessment and plan: 1. Arlin is doing well with contractions. She has had minimal vaginal leaking. With VE changes to 3-4/80/-2 with bulging forewaters noted, she agrees to augmentation by breaking forewaters and continued expectant management at this time. 2. Plan to reassess in 2 hours or prn for progression of contraction intensity. KH Objective Abnormal lab results 09/05/22 Range/Units 05:59 MPV 11.1 H (8.0-11.0) fL Temp Pulse Resp BP Pulse Ox 97.9 F 81 16 109/71 98 09/05/22 07:25 09/05/22 07:25 09/05/22 07:25 09/05/22 07:25 09/05/22 07:25 Laboratory Results WBC 9.94 10^3/uL (4.4-10.8) 09/05/22 05:59 RBC 4.59 10^6/uL (3.93-5.22) 09/05/22 05:59 Hgb 14.4 g/dL (11.2-15.7) 09/05/22 05:59 Hct 41.5 % (36.0-46.0) 09/05/22 05:59 MCV 90 fL (80-95) 09/05/22 05:59 MCH 31.4 pg (27.0-33.0) 09/05/22 05:59 MCHC 34.7 % (32.0-36.0) 09/05/22 05:59 RDW 12.7 % (11.7-14.6) 09/05/22 05:59 Plt Count 253 10^3/uL (130-400) 09/05/22 05:59 MPV 11.1 fL (8.0-11.0) H 09/05/22 05:59 Membranes Rupture Positive 09/05/22 04:55 COVID-19 Source Nasal/Nares 09/05/22 05:45 SARS-CoV-2 (PCR) Negative (Negative) 09/05/22 05:45 Patient ABO/Rh O Negative 09/05/22 05:59 Antibody Screen POSITIVE 09/05/22 05:59 Antibody Identification Anti-D 09/05/22 05:59 Antigen Identification Cancelled 09/05/22 05:59 Subjective Interval history since last seen: Arlin is doing well with contractions. No longer having back pain. She has had minimal amounts of clear fluid vaginally. She is looking forward to having this baby today. Her plan is to avoid epidural if possible. KH Results Hemoglobin/Hematocrit: Hgb 14.4 g/dL (11.2-15.7) 09/05/22 05:59 Hct 41.5 % (36.0-46.0) 09/05/22 05:59 Abnormal Lab Findings: Abnormal Labs 09/05/22 05:59 MPV 11.1 H
[2022-09-05] MEDS: Montelukast 10 MG TAB PO (09:27)
--- NOTE | 2022-09-05 11:47 | PGE_ITS ---
Date of service: 09/05/22 Time of Service: 11:47 Informed Consent Informed Consent: Augmentation of Labor and Risk,Benefits,Alternatives Discussed Pelvic Exam Comments: VE deferred as ROM and not in active labor Contractions Monitor Mode: External Contraction Frequency(min): 2-6 Contraction Duration(sec): 40-60 Intensity: Mild/Moderate Fetus A Monitor: Novii Heart Rate Baseline: 120 Variability: Moderate (6-25 BPM) Categories: Category I Assessment and Plan Assessment and plan (1) Full-term premature rupture of membranes (PROM) with unknown onset of labor: Status: Acute Assessment and plan: 1. Due to lack of increasing intensity or frequency of contractions after rupturing amniotic forewaters, we will begin pitocin augmentation. 2. Risks, benefits and alternatives to pitocin reviewed and patient agrees to plan of care. 3. Is not planning epidural at this time. Alternative pain management options have been discussed. 4. Reassess after 2 hours of regular, strong uterine contractions or as indicated by maternal/ status. 5. OB physician pressure control supervisor, Dr. Duran, notified of this plan and agrees to plan of care. KH Objective Abnormal lab results 09/05/22 Range/Units 05:59 MPV 11.1 H (8.0-11.0) fL Temp Pulse Resp BP Pulse Ox 97.9 F 72 16 116/64 96 09/05/22 10:45 09/05/22 11:35 09/05/22 09:29 09/05/22 11:35 09/05/22 11:35 Laboratory Results WBC 9.94 10^3/uL (4.4-10.8) 09/05/22 05:59 RBC 4.59 10^6/uL (3.93-5.22) 09/05/22 05:59 Hgb 14.4 g/dL (11.2-15.7) 09/05/22 05:59 Hct 41.5 % (36.0-46.0) 09/05/22 05:59 MCV 90 fL (80-95) 09/05/22 05:59 MCH 31.4 pg (27.0-33.0) 09/05/22 05:59 MCHC 34.7 % (32.0-36.0) 09/05/22 05:59 RDW 12.7 % (11.7-14.6) 09/05/22 05:59 Plt Count 253 10^3/uL (130-400) 09/05/22 05:59 MPV 11.1 fL (8.0-11.0) H 09/05/22 05:59 Membranes Rupture Positive 09/05/22 04:55 COVID-19 Source Nasal/Nares 09/05/22 05:45 SARS-CoV-2 (PCR) Negative (Negative) 09/05/22 05:45 Patient ABO/Rh O Negative 09/05/22 05:59 Antibody Screen POSITIVE 09/05/22 05:59 Antibody Identification Anti-D 09/05/22 05:59 Antigen Identification Cancelled 09/05/22 05:59 Vital Signs Reviewed: Yes Subjective Interval history since last seen: Arlin reports contractions have not increased in intensity or frequency since releasing amniotic forewaters. She would like to move forward with pitocin augmentation at this time. She is aware of risks, benefits and alternatives as well as potential side effects of pitocin. Interventions Augmentation , Pitocin rate (mU/min): 2 will begin pitocin at 2mu once IV access is available and increase by 2 mu until regular strong uterine contractions are achieved and as are tolerated by fetus and patient. KH . Results Hemoglobin/Hematocrit: Hgb 14.4 g/dL (11.2-15.7) 09/05/22 05:59 Hct 41.5 % (36.0-46.0) 09/05/22 05:59 Abnormal Lab Findings: Abnormal Labs 09/05/22 05:59 MPV 11.1 H
[2022-09-05] MEDS: Normal Saline Flush 10 ML SYR IVP (12:10)
[2022-09-05] MEDS: Lactated Ringers 1,000 ML 125 ML IV (12:19)
[2022-09-05] MEDS: Oxytocin/Normal Saline 30 UNIT/500 ML BAG 2 UNITS IV (12:32)
--- NOTE | 2022-09-05 15:58 | PGE_ITS ---
Date of service: 09/05/22 Time of Service: 15:58 Informed Consent Informed Consent: Augmentation of Labor and Risk,Benefits,Alternatives Discussed Pelvic Exam Dilation: 5 Effacement (%): 90 station: -1 Position: ROT Contractions Monitor Mode: Palpation Contraction Frequency(min): 2-3 Contraction Duration(sec): 40-60 Intensity: Moderate/Strong Fetus A Monitor: Novii Heart Rate Baseline: 120 Variability: Moderate (6-25 BPM) Categories: Category I Accelerations: 15 X 15 Decelerations: None Assessment and Plan Assessment and plan (1) Full-term premature rupture of membranes (PROM) with unknown onset of labor: Status: Acute Assessment and plan: 1. Pitocin augmentation being done for PROM at term. Currently pitocin is at 8mu 2. Pain management options reviewed. Patient would like IV Nubain vs. epidural or behavioral methods at this time. I reviewed with her and her Mother her Codeine allergy listed as Hives, she reports she had a red face and itching once with no SOB or generalized hives. She would like to try Nubain at this time. I reviewed Nubain use and that if delivery occurred quickly baby may have some respiratory depression but that she is 5cm and it is unlikely that that will happen. She desires dose now. 3. Will monitor for need to increase pitocin and continue current management. KH Objective Abnormal lab results 09/05/22 Range/Units 05:59 MPV 11.1 H (8.0-11.0) fL Temp Pulse Resp BP Pulse Ox 97.9 F 81 16 106/57 L 99 09/05/22 15:35 09/05/22 15:35 09/05/22 09:29 09/05/22 15:35 09/05/22 15:35 Laboratory Results WBC 9.94 10^3/uL (4.4-10.8) 09/05/22 05:59 RBC 4.59 10^6/uL (3.93-5.22) 09/05/22 05:59 Hgb 14.4 g/dL (11.2-15.7) 09/05/22 05:59 Hct 41.5 % (36.0-46.0) 09/05/22 05:59 MCV 90 fL (80-95) 09/05/22 05:59 MCH 31.4 pg (27.0-33.0) 09/05/22 05:59 MCHC 34.7 % (32.0-36.0) 09/05/22 05:59 RDW 12.7 % (11.7-14.6) 09/05/22 05:59 Plt Count 253 10^3/uL (130-400) 09/05/22 05:59 MPV 11.1 fL (8.0-11.0) H 09/05/22 05:59 Membranes Rupture Positive 09/05/22 04:55 COVID-19 Source Nasal/Nares 09/05/22 05:45 SARS-CoV-2 (PCR) Negative (Negative) 09/05/22 05:45 Patient ABO/Rh O Negative 09/05/22 05:59 Antibody Screen POSITIVE 09/05/22 05:59 Antibody Identification Anti-D 09/05/22 05:59 Antigen Identification Cancelled 09/05/22 05:59 Vital Signs Reviewed: Yes Subjective Interval history since last seen: Arlin requests IV pain medication as Nitrous alone is not enough to keep her comfortable. I reviewed with her and her Mother the history of Codeine allergy w ith reaction of hives. She reports she had face redness and itching but no SOB or generalized hives. She has used other narcotic when she had her wisdom teeth removed without this reaction but cannot remember what it was. She prefers trying the Nubain and agrees to IV benadryl if she has hives or other reaction. Declines epidural as alternative at this time. KH Results Hemoglobin/Hematocrit: Hgb 14.4 g/dL (11.2-15.7) 09/05/22 05:59 Hct 41.5 % (36.0-46.0) 09/05/22 05:59 Abnormal Lab Findings: Abnormal Labs 09/05/22 05:59 MPV 11.1 H
[2022-09-05] MEDS: Oxytocin 10 UNITS/ML VIAL IM (18:40)
[2022-09-05] MEDS: Lidocaine 1% Multi-Dose 20 ML VIAL IJ (18:45)
[2022-09-05] MEDS: miSOPROStol 200 MCG TAB 600 MCG SL (18:46)
--- NOTE | 2022-09-05 19:07 | OBVDS_ITS ---
Date of service: 09/05/22 Time of Service: 19:07 OB Labor/ Delivery Information Baby A Delivery Delivery Method: Spontaneaous Presentation: Cephalic Cephalic Position: Vertex Vertex Position: Right Occipital Anterior Cord Description-Baby A: 3 Vessels, Nuchal Cord (X 1 reduced after head delivers and before shoulders deliver. ) and Clamped/Cut Estimated Blood Loss: 800 Delivery Outcome: Liveborn Transferred: Remains with Mother Note: Arlin presented 09/05/22 am due to concerns of SROM at 0130. She was cyn mildly at that time but became more active after 6 hours. She progressed to 3cm but slowly to 5cm after releasing forewaters. Arlin desired pitocin augmentation to be started and this allowed her labor to progress. She had urge to push at 1700 and was found to be 10 cm +2. She pushed with encouragement and had a NVD at 1835 over 2nd degree vaginal laceration. Head delivered and nuchal cord X1 wsa noted and reduced before shoulders delivered with gentle maternal pushing. Baby girl, Georgie, was placed skin to skin and positive family bonding was noted immediately. Cord was double clamped and cut by MEENAKSHI Lara after 1 minute. Cord blood obtained. score 8/9. 3 vessel cord noted. vaginal laceration was infiltrated with 1% lidocaine and repaired with 3.0 Chromic with locking stitch. IV was pulled out at delivery and therefore Pitocin 10 units IM was given after baby delivered and before placenta delivered. I also gave Arlin 600 mg misoprostol PO due to gush of blood after placenta delivered at 1843. Sponge, needle and instrument count are correct. Mother and Baby are in satisfactory condition. Arlin plans to breast feed her daughter. Baby's weight 7lb3oz . Planning condoms for contraception. Providers Nurse Heat Engineering Teacher: Kathryn Lopez Nurse: Cal Infante Nurse: Gail Lozoya Other: Naila avery Labor/Delivery Information Number of Babies in Womb: 1 Steroids Given: None Reason Steroids Not Administered: N/A Group Beta Strep: Negative Antibiotics Administered: No Rubella Status: Immune Blood Type: O- Varicella Immunity: Immune Shoulder Dystocia: No Stages of Labor Onset of Labor Date: 09/05/22 Onset of Labor Time: 01:30 Complete Dilatation Date: 09/05/22 Complete Dilatation Time: 17:00 Labor - Stage 1 Duration: 15 hours and 30 minutes ROM Baby A: 09/05/22 ROM Baby A: 08:06 ROM Total Time- Baby A: [id number] Infant Delivery Date-Baby A: 09/05/22 Infant Delivery Time-Baby A: 18:35 Labor Stage 2 Duration: 1 hours and 35 minutes Placenta Delivery Date-Baby A: 09/05/22 Placenta Delivery Time-Baby A: 18:43 Labor-Stage 3 Duration: 8 minutes Total Length of Labor-Baby A: 17 hours and 5 minutes Placenta Status: Delivered Baby A Infant Gender: Female Gestational Status: Term (39-41.6 wks) Gestational Age in Weeks/Days: 40 Weeks and 2 Days Score-1 Minute Interval(Baby A) Heart Rate-1 minute: 100 BPM or Greater Respiratory Effort- 1 minute: Slow Respiration/Weak Cry Muscle Tone-1 minute: Active Movement Reflex Response-1 minute: Prompt Response Color-1 minute: Bluish Hands or Feet Total Score-1 minute: 8 Score-5 Minute Interval(Baby A) Heart Rate- 5 minute: 100 BPM or Greater Respiratory Effort-5 minute: Spontaneous/Strong Cry Muscle Tone-5 minute: Active Movement Reflex Response-5 minute: Prompt Response Color-5 minute: Bluish Hands or Feet Total Score- 5 minute: 9
[2022-09-05] MEDS: Ibuprofen 600 MG TAB PO (19:48)
[2022-09-06 07:40] VITALS: BP 107/73; PULSE 12; TEMP 36.6
--- NOTE | 2022-09-06 08:21 | W.PM.OBPNV1 ---
Date of service: 09/06/22 Time of Service: 08:21 Assessment and Plan Assessment and plan (1) care following vaginal delivery: Status: Acute Assessment and plan: 1. Stable PP day 1, continue present management (2) Lactating mother: Status: Acute Assessment and plan: 1. Breast feeding is well established, continue present management. Subjective Subjective Interval history: Doing well. Out of bed without difficulty, doing own ADL's. Breast feeding is going well. Denies pain. Patient's Mood: happy [place] baby status: Doing well, Nursing well, Rooming in and Strong Bonding Observed feeding status: Exclusively breast feeding Exam Physical Exam Vital signs: Temp Pulse Resp BP Pulse Ox 98.6 F 66 16 120/79 99 09/05/22 23:57 09/05/22 23:57 09/05/22 23:57 09/05/22 23:57 09/05/22 15:35 Constitutional Constitutional: no acute distress, average body habitus and cooperative HEENT Exam HEENT Exam: Normal Neck Exam Neck Exam: Normal (normal visual inspection) Respiratory Exam Respiratory Exam: Normal Cardiovascular Exam Cardiovascular Exam: Normal Abdominal Exam Abdomen: Other (normal exam) Fundal Exam Fundus: Below Umbilicus and Firm Comment: small lochia noted. Rectal Exam Rectal Exam: Not Done Exam Perineum: Normal and Repair Intact Extremities Exam Extremity Exam: Normal (denies calf tenderness) and Full ROM Back/Spine/Pelvis Exam Back Exam: Normal Skin Exam Skin Exam: Normal Neurological Exam Neurological Exam: Normal Psychiatric Exam Psychiatric Exam: Normal Results Hemoglobin/Hematocrit: Hgb 14.4 g/dL (11.2-15.7) 09/05/22 05:59 Hct 41.5 % (36.0-46.0) 09/05/22 05:59 Abnormal Lab Findings: Abnormal Labs 09/05/22 05:59 MPV 11.1 H
[2022-09-06] MEDS: Montelukast 10 MG TAB PO (08:39)
[2022-09-06] MEDS: Hamamelis Leaf/Glycerin 100 EACH BOX PR (17:33)
[2022-09-06] MEDS: Dibucaine 1% 28 GM TUBE TP (17:33)
[2022-09-06 17:34] VITALS: TEMP 36.8
[2022-09-06] MEDS: Ibuprofen 600 MG TAB PO (17:34)
[2022-09-06 18:00] VITALS: BP 122/76; PULSE 88; RESP 20; TEMP 36.7
[2022-09-06 19:30] VITALS: BP 100/64; PULSE 90; RESP 18; TEMP 36.7
[2022-09-07] MEDS: Ibuprofen 600 MG TAB PO (07:39)
[2022-09-07 07:43] VITALS: BP 105/70; PULSE 98; RESP 18; TEMP 36.7; O2SAT 96
[2022-09-07] MEDS: Montelukast 10 MG TAB PO (08:29)
--- NOTE | 2022-09-07 08:57 | W.PM.OBPNV1 ---
Date of service: 09/07/22 Time of Service: 08:57 Assessment and Plan Assessment and plan (1) Lactating mother: Status: Acute Assessment and plan: 1. Continue present management. Working with today as well. 2. likely discharge to home today. LULY (2) care following vaginal delivery: Status: Acute Assessment and plan: 1. Continue present management, probable discharge to home later today. LULY Subjective Subjective Interval history: Doing well. working with this morning in relation to pumping and breast feeding. LULY [place] baby status: Strong Bonding Observed [place] feeding status: Exclusively breast feeding Exam Physical Exam Vital signs: Temp Pulse Resp BP Pulse Ox 98.1 F 98 H 18 105/70 96 09/07/22 07:43 09/07/22 07:43 09/07/22 07:43 09/07/22 07:43 09/07/22 07:43 Vital Signs Reviewed: Yes Constitutional Constitutional: no acute distress, average body habitus and cooperative HEENT Exam HEENT Exam: Normal Neck Exam Neck Exam: Normal (normal visual inspection) Respiratory Exam Respiratory Exam: Normal Cardiovascular Exam Cardiovascular Exam: Normal Abdominal Exam Abdomen: Other (normal exam) Fundal Exam Fundus: Below Umbilicus and Firm Comment: small lochia noted. Rectal Exam Rectal Exam: Not Done Exam Perineum: Repair Intact External: Present normal urethra appearance Extremities Exam Extremity Exam: Normal (denies calf tenderness) and Full ROM Back/Spine/Pelvis Exam Back Exam: Normal Skin Exam Skin Exam: Normal Neurological Exam Neurological Exam: Normal Psychiatric Exam Psychiatric Exam: Normal Results Hemoglobin/Hematocrit: Hgb 14.4 g/dL (11.2-15.7) 09/05/22 05:59 Hct 41.5 % (36.0-46.0) 09/05/22 05:59 Abnormal Lab Findings: Abnormal Labs 09/05/22 05:59 MPV 11.1 H
--- NOTE | 2022-09-07 13:34 | W.PM.OBDISCH ---
Date of service: 09/07/22 Time of Service: 13:34 DS: Diagnosis Discharge Diagnosis (1) Lactating mother: Status: Acute Asessment and Plan: 1. Patient has good feeling plan and is feeling she has good information on best breast feeding practices and warning signs of mastitis. 2. Follow up with Pediatric provider as indicated and [facility] in 2 week.KH (2) care following vaginal delivery: Status: Acute Asessment and Plan: 1. Normal PP course 2. Will call with any concerns, PP warning signs of bleeding, pain, fever, depression, and mastitis all reviewed and how to contact Credit Support Counselor health promotion officer 3. Plans to use condoms for contraception after 6 week PP visit 4. RTO in 2 and 6 weeks. 5. Note given with date of of baby and that she will be out of work for 6 weeks PP. Discharge Plan Disposition Condition: Good Discharge Details Reason For Visit: PROM at Term Admit Date/Time: 09/05/22 05:17 Admit Provider: Kathryn Lopez Attending Provider: Kathryn Lopez Primary Care Provider: Unknown,Unknown Hospital Course Hospital Course: Augmentation of labor due to PROM at term. NVD of live female over second degree laceration with repair. Normal PP course. Will RTO in 2 and 6 weeks. Home Meds and New Rx's Prescriptions: New docusate sodium [Colace] 100 mg Capsule 100 mg PO BID PRN PRNQty: 90 0RF Continued montelukast [Singulair] 10 mg tablet 10 mg PO DAILY fexofenadine-pseudoephedrine [Nikki-D 12 Hour] 60-120 mg tablet extended release 12 hr 1 tab PO Q12H PRN prenat.vits,jaya,[id number] Tablet 1 tab PO DAILY phenazopyridine [Pyridium] 200 mg tablet 200 mg PO TID PRN Discharge Instructions Instructions: Laxative, Stimulant Combination (By mouth), Depression (GEN), Male Condom Use (DC) Stand Alone Forms: BC Instructions, BC Post Vaginal Deliver Activity:: Activity as Tolerated Equipment/Supplies:: No Equipment Needed Diet:: As Tolerated OB:DS Summary Summary Vaginal Delivery Method: Spontaneaous Laceration Extension: N/A Contraception Discussed Contraception Discussed: Yes (condoms planned) Contraceptive Plan: Foam/Condoms, Gender-Baby A: Female weight: 7 lb 3.169 oz Status at Discharge Functional status at discharge: independent ambulation Overall status at discharge: patient is back to baseline Mental Status: mental status grossly normal Speech and Movement: speech and movement normal Mood: congruent mood Affect: normal affect Time Spent with Patient providing and/or coordinating discharge services: Less than 30 minutes Exam Physical Exam Vital signs: Temp Pulse Resp BP Pulse Ox 98.1 F 98 H 18 105/70 96 09/07/22 07:43 09/07/22 07:43 09/07/22 07:43 09/07/22 07:43 09/07/22 07:43 Vital Signs Reviewed: Yes Constitutional Constitutional: no acute distress, obese and cooperative HEENT Exam HEENT Exam: Normal Neck Exam Neck Exam: Normal (normal visual inspection) Respiratory Exam Respiratory Exam: Normal Cardiovascular Exam Cardiovascular Exam: Normal Abdominal Exam Abdomen: Other (normal exam) Fundal Exam Fundus: Below Umbilicus and Firm Comment: small lochia noted. KH Rectal Exam Rectal Exam: Not Done Exam Perineum: Repair Intact External: Present normal urethra appearance Extremities Exam Extremity Exam: Normal (denies calf tenderness) and Full ROM Back/Spine/Pelvis Exam Back Exam: Normal Skin Exam Skin Exam: Normal Neurological Exam Neurological Exam: Normal Psychiatric Exam Psychiatric Exam: Normal PFSH All Active Problems (Updated 09/07/22 @ 08:59 by Kathryn Lopez CNM) Lactating mother (Acute) care following vaginal delivery (Acute) Allergy history, penicillin (Acute) Migraines (Chronic) Asthma (Chronic) Von Willebrand disease (Acute) Medical History (Updated 09/07/22 @ 08:59 by Kathryn Lopez CNM) Family history of cardiac disorder in father Pt's born with hypoplastic left heart History of nephrolithiasis Rh negative state in antepartum period Family History Other Diabetes Social History Smoking/Tobacco Use Status: Never Smoking risk assessment performed?: Yes Alcohol Intake: never Drug use: Never Household members: spouse Housing: house Number of Children: 0 Education Level: college 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 Sexually active: Yes Do you think of yourself as: straight/heterosexual Current gender identity: female Do you feel safe at home: Yes Do you feel safe in your relationship?: Yes Female Reproductive History Menstrual Age of Menarche: 10 Duration of menses: 3-5 days control method: none History History 1 Para 0 Hx # Term Pregnancies 0 Multiple births 0 Hx # Pregnancies 0 Ectopic pregnancies 0 AB induced 0 Hx Number of Living Children 0 AB spontaneous 0 DS: Data Vitals/I&O Vitals and I&O: Vital Signs Temperature 98.1 F 09/07/22 07:43 Pulse 98 H 09/07/22 07:43 Pulse Rhythm Regular 09/06/22 21:30 Respiratory Rate 18 09/07/22 07:43 Blood Pressure 105/70 09/07/22 07:43 Blood Pressure Mean 81 09/07/22 07:43 Pulse Oximetry 96 09/07/22 07:43 Pain Level 4 09/06/22 18:00
== END 2022-09-07 14:45 | disposition home or self-care (01) | DRG 806 ==
LOC: OBS 05:21 → BCD 09-07 10:43 → OBS 09-07 10:43
PROVIDERS: Admitting Provider Advanced Practice Midwife; Visit Provider Advanced Practice Midwife
DX: O42.92 Full-term premature rupture of membranes, unspecified as to length of time between rupture and onset of labor (principal); D68.00 Von Willebrand disease, unspecified; Z37.0 Single live birth; O99.12 Other diseases of the blood and blood-forming organs and certain disorders involving the immune mechanism complicating childbirth; O36.0930 Maternal care for other rhesus isoimmunization, third trimester, not applicable or unspecified; O99.354 Diseases of the nervous system complicating childbirth; Z3A.40 40 weeks gestation of pregnancy; O69.81X0 Labor and delivery complicated by cord around neck, without compression, not applicable or unspecified; O99.52 Diseases of the respiratory system complicating childbirth; J45.909 Unspecified asthma, uncomplicated; G43.909 Migraine, unspecified, not intractable, without status migrainosus; O70.1 Second degree perineal laceration during delivery
CPT/HCPCS: 84112; 85027; 86850; 86900; 86901; 87635; 86870; 86902; J2405; J2590; J3490